=== PATIENT | male | born 1990 | race Caucasian/White ===

== ENCOUNTER 2016-10-20 22:47 | Emergency (ER) | payer SELFPAY ==
[~2016-10-20] VITALS: Ht 185.4 cm; Wt 77.1 kg
[2016-10-20 23:09] VITALS: BP 124/76
--- NOTE | 2016-10-20 23:15 | NUR ---
PATIENT TO ER OF1.
--- NOTE | 2016-10-20 23:20 | NUR ---
PATIENT BEING EVALUATED BY DR. HUTCHINSON.
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
--- NOTE | 2016-10-21 01:35 | NUR ---
PATIENT TO ER BED 4.
[2016-10-21 02:32] VITALS: BP 137/68
--- NOTE | 2016-10-21 02:32 | NUR ---
Patient discharged with v/s stable. Written and verbal after care instructions given and explained. Patient alert, oriented and verbalized understanding of instructions. Ambulatory with steady gait. All questions addressed prior to discharge. ID band removed. Patient advised to follow up with PMD OR RETURN TO ER IF CONDITION WORSENS. Rx of CORTISPORIN OTIC given. Patient educated on indication of medication including possible reaction and side effects. Opportunity to ask questions provided and answered.
== END 2016-10-21 02:32 | disposition home or self-care (01) ==
LOC: MED 22:47
DX: S00.01XA Abrasion of scalp, initial encounter (principal); S50.312A Abrasion of left elbow, initial encounter; S20.412A Abrasion of left back wall of thorax, initial encounter; H72.92 Unspecified perforation of tympanic membrane, left ear; V29.9XXA Motorcycle rider (driver) (passenger) injured in unspecified traffic accident, initial encounter; Y93.89 Activity, other specified; Y92.89 Other specified places as the place of occurrence of the external cause; Y99.8 Other external cause status
CPT/HCPCS: 70450; 72125; 73030; 99284